=== PATIENT | female | born 1960 | race Caucasian/White ===

== ENCOUNTER 2018-02-25 07:23 | Day surgery (SDC) | payer BC ==
[2018-02-25] MEDS ORDERED: PROPOFOL 10 MG/ML VIAL IV ONE (07:24)
[2018-02-25] MEDS ORDERED: LIDOCAINE 2% MDV (20MG/ML) 20ML VIAL IV ONE (07:24)
--- NOTE | 2018-02-27 09:30 | Operative Note ---
DATE OF SURGERY: 02/25/2018 OPERATION: COLONOSCOPY to the cecum with cold biopsy forceps polypectomy. INDICATION: Prior history of adenomatous polyp removed 5 years ago. The patient returns at this time for surveillance. ANESTHESIA: Intravenous sedation was administered by the department of anesthesiology and included Diprivan titrated to effect. PROCEDURE: Following informed consent from this alert individual including a discussion of the risks and benefits of the procedure and an opportunity for the patient to ask questions, the patient was in the left lateral decubitus position. A digital rectal examination was performed. No abnormalities were noted. Following this, the Olympus [id number] video colonoscope was inserted into the rectum without resistance. The rectal mucosa had a normal appearance with normal folds and distensibility. The colonoscope was advanced up through the colon to the level of the cecum without much difficulty. Throughout the bowel the mucosa appeared normal, the folds were normal, and the bowel was fairly well distensible. The colon preparation was good. The cecum was defined by noting the appendiceal orifice and ileocecal valve. From the base of the cecum, the colonoscope was then slowly withdrawn. There was a diminutive 3 mm polyp noted in the descending colon which was removed with cold biopsy forceps. There were small diverticula noted in the sigmoid colon. The instrument was then withdrawn back into a healthy appearing rectum where retroflexion accomplished following air insufflation failed to demonstrate any abnormalities. The endoscope was straightened and removed. The patient tolerated the procedure well and was returned to the recovery area in stable condition. IMPRESSION: 1. Diminutive 3 mm descending colon polyp removed with biopsy forceps. 2. Mild sigmoid diverticulosis. RECOMMENDATIONS: The patient was advised she should receive a copy of her pathology report at home in the next 2-3 weeks. If not, she was asked to call my office to review the results of testing today. Further recommendations forthcoming pending those results. Followup will be with Dr. Parkinson as well. As always, thank you for allowing me to participate in the care of your patient. CC: NATALI PARKINSON MD, FACP [facility]
== END 2018-02-25 09:10 | disposition home or self-care (01) ==
LOC: HOP 07:23
PROVIDERS: ATTEND Internal Medicine Gastroenterology
DX: Z12.11 Encounter for screening for malignant neoplasm of colon (principal); Z86.010 Personal history of colon polyps; D12.4 Benign neoplasm of descending colon; K57.30 Diverticulosis of large intestine without perforation or abscess without bleeding; R56.9 Unspecified convulsions

== ENCOUNTER 2018-04-26 11:54 | Emergency (ER) | payer BC ==
[2018-04-26] MEDS ORDERED: PROMETHAZINE HCL 12.5 MG in 0.9 % SODIUM CHLORIDE 100ML 100 ML IVPB ONE (12:02)
[2018-04-26] MEDS ORDERED: MECLIZINE 25 MG TABLET PO ONE (12:02)
--- NOTE | 2018-04-26 12:08 | Emergency Department Record ---
History of Present Illness - General Chief Complaint: Nausea, Vomiting, Diarrhea Stated Complaint: DIZZY/N/V Time Seen by Provider: 04/26/18 11:55 Source: Patient, Family, EMS Mode of Arrival: EMS Limitations: No limitations - History of Present Illness Initial Comments: 57 yo female presents with sudden onset of dizziness. The onset was after sex. She states she has had dizziness in the past with turning the head suddenly. She has been having some episodes of mild room spinning dizziness since Sunday. She states she woke up at 7am without symptoms. No headache. She states she turned her head a few times and the dizziness started. She has associated nausea and vomiting. No other pain, weakness or new symptoms. She has a history of seizures but non recently. She is on Keppra. She does note some ear ringing. No headache. She states Dr Parkinson has treated her in the past for similar symptoms. She thinks she was on antivert at that time. MD Complaint: Dizziness -: Hour(s) (1) Timing: Sudden onset Description: "Room spinning" History of Same: Yes History of Trauma: No Severity: Severe Improves With: Other (Keeping her eyes closed) Worsens With: Movement, Position Associated Symptoms: Other (Nausea and vomiting) - Ru Coma Scale Eye Response: (4) Open spontaneously Motor Response: (6) Obeys commands Verbal Response: (5) Oriented Ru Total: 15 - Related Data Previous Rx's Medication Instructions Recorded Meclizine HCl [Antivert] 25 mg PO Q8H #20 tablet 04/26/18 Ondansetron [Zofran Odt] 4 mg PO Q8H #20 tab.rapdis 04/26/18 Allergies Allergy/AdvReac Type Severity Reaction Status Date / Time No Known Drug Allergies Allergy Verified 01/13/15 02:31 Review of Systems Constitutional: Denies: Chills, Fever, Malaise, Weakness Eyes: Denies: Eye discharge, Eye pain, Photophobia, Vision change ENT: Denies: Congestion, Ear pain, Epistaxis, Throat pain Respiratory: Denies: Cough, Dyspnea, Hemoptysis, Wheezes Cardiovascular: Denies: Chest pain, Palpitations, Syncope Endocrine: Denies: Fatigue Gastrointestinal: Reports: Nausea, Vomiting. Denies: Abdominal pain, Diarrhea Genitourinary: Denies: Dysuria Musculoskeletal: Denies: Arthralgia, Back pain, Myalgia Skin: Denies: Bruising, Change in color, Rash Neurological: Reports: Vertigo. Denies: Abnormal gait, Confusion, Headache, Paresthesias, Tingling, Tremors Psychiatric: Denies: Anxiety Hematological/Lymphatic: Denies: Blood Clots, Easy bleeding, Easy bruising Past Medical History - SOCIAL HISTORY Smoking Status: Never smoker - RESPIRATORY Hx Respiratory Disorders: No - CARDIOVASCULAR Hx Cardio Disorders: No - NEURO Hx Neuro Disorders: Yes Hx Seizures: Yes - GI Hx GI Disorders: No - Hx Genitourinary Disorders: No - ENDOCRINE Hx Endocrine Disorders: No - MUSCULOSKELETAL Hx Musculoskeletal Disorders: Yes Comment:: 2008-neck injury - PSYCH Hx Psych Problems: No - HEMATOLOGY/ONCOLOGY Hx Hematology/Oncology Disorders: No Family Medical History Family Hx Comment (NOT TO BE USED IN PLACE OF ITEMS BELOW): sister w/ mental retardation Hx Cancer: Mother, Brother/Sister Hx HTN: Father Hx Seizures: Brother/Sister Physical Exam - General General Appearance: Alert, Oriented x3, Cooperative, No acute distress Limitations: No limitations - Head Head exam: Atraumatic, Normal inspection - Eye Eye exam: Normal appearance, PERRL, EOMI. negative: Conjunctival injection, Nystagmus, Periorbital swelling - ENT ENT exam: Normal exam, Mucous membranes moist Ear exam: Normal external inspection Nasal Exam: Normal inspection Mouth exam: Normal external inspection - Neck Neck exam: Normal inspection. negative: Tenderness - Respiratory Respiratory exam: Normal lung sounds bilaterally. negative: Respiratory distress, Rhonchi, Stridor, Wheezes - Cardiovascular Cardiovascular Exam: Regular rate, Normal rhythm, Normal heart sounds Peripheral Pulses: 2+: Radial (R), Radial (L) - GI/Abdominal GI/Abdominal exam: Soft. negative: Tenderness - Rectal Rectal exam: Deferred - exam: Deferred - Extremities Extremities exam: Normal inspection, Full ROM, Normal capillary refill. negative: Calf tenderness, Joint swelling, Pedal edema, Tenderness - Back Back exam: Denies: CVA tenderness (R), CVA tenderness (L) - Neurological Neurological exam: Alert, CN II-XII intact, Oriented X3, Other (No PND, Normal FTN, No ataxia, clear speech, steady walking without ataxia). negative: Altered , Motor sensory deficit - Psychiatric Psychiatric exam: Anxious - Skin Skin exam: Dry, Intact, Normal color, Warm Course - Reevaluation(s) Reevaluation #1: Bedside report taken from EMS. 04/26/18 12:07 04/26/18 13:15 EKG sinus rate 79, intervals normal, axis normal, ST normal, normal EKG 04/26/18 13:16 HCT is negative The Labs were reviewed. No acute changes. 04/26/18 13:26 The HCT is negative for acute process. The patient's symptoms are much improved at this time. No nausea. 04/26/18 14:43 The patient continues to do very well. The symptoms are nearly resolved. She will be ambulated and reassessed 04/26/18 15:13 The patient is doing well. She has been up to the restroom without difficulty. We discussed home care, reasons to return and close followup Rx for Antivert and Zofran provided Medical Decision Making - Lab Data Result diagrams: 04/26/18 12:00 04/26/18 12:00 Disposition Disposition: Discharge Clinical Impression: Vertigo Disposition: Home, Self-Care Condition: (1) Good Instructions: Vertigo (ED) Additional Instructions: Rest and stay well hydrated Return if the symptoms return or any new concerns or symptoms Take the Antivert every 6 hours You may take Zofran if you have nausea Prescriptions: Meclizine HCl [Antivert] 25 mg PO Q8H #20 tablet Ondansetron [Zofran Odt] 4 mg PO Q8H #20 tab.rapdis Forms: Patient Portal Access Time of Disposition: 14:46 Quality - Quality Measures Quality Measures: N/A - Blood Pressure Screening Does Patient Have Any of the Following: No Blood Pressure Classification: Pre-Hypertensive BP Reading Systolic Measurement: 123 Diastolic Measurement: 77 Screening for High Blood Pressure: < Pre-Hypertensive BP, F/U Documented > [ [id number]] Pre-Hypertensive Follow-up Interventions: Referral to alternative/primary care provider.
[2018-04-26 12:13] LABS: BASO % 0.3 % (0-6); EOS % 0.4 % (0-6); GRAN % 59.6 % (47-80); HEMOGLOBIN 13.8 gm/dl (11.6-16.0); LYMPH % 31.8 % (16-45); MEAN CORPUSCULAR HEMOGLOBIN 32.3 pg (27-33); MEAN CORPUSCULAR HGB CONC 33.7 g/dl (32-36); MEAN PLATELET VOLUME 11.7 fl (7.4-10.4); MONO % 7.9 % (0-9); PLATELET COUNT 228 K/uL (130-400); RED BLOOD COUNT 4.27 M/uL (3.80-5.40); RED CELL DISTRIBUTION WIDTH 12.5 % (11.5-14.5); WHITE BLOOD COUNT W/O DIFF 7.9 K/uL (4.2-12.2)
[2018-04-26 12:25] LABS: BLOOD UREA NITROGEN 18 mg/dL (6-20)
[2018-04-26 12:26] LABS: CREATININE 0.8 mg/dL (0.5-0.9); EST GLOMERULAR FILTRATION RATE > 60 mL/min; TOTAL PROTEIN 7.7 g/dL (6.6-8.7)
[2018-04-26 12:28] LABS: GLUCOSE,RANDOM 116 mg/dL (74-109)
[2018-04-26 12:31] LABS: ALB/GLOB RATIO 1.6 (1.1-1.8); ALBUMIN 4.7 g/dL (4.0-5.0); ALKALINE PHOSPHATASE 68 U/L (35-104); ALT/SGPT 17 U/L (<33); AST/SGOT 23 U/L (10.0-35.0)
[2018-04-26] MEDS ORDERED: ACETAMINOPHEN 500 MG TABLET PO ONE (15:05)
--- NOTE | 2018-04-27 20:34 | CT SCAN REPORT ---
EXAM: CT SCAN HEAD WO CONTRAST HISTORY: SUDDEN ONSET DIZZINESS. TECHNIQUE: Axial CT scan of the head performed without IV contrast. COMPARISON: None. FINDINGS: No definite acute intracranial hemorrhage identified. No focal mass effect or midline shift apparent. No definite acute infarct or intracranial mass lesion seen. No depressed calvarial fracture evident. IMPRESSION: EMERGENCY NONCONTRAST HEAD CT APPEARS ESSENTIALLY NEGATIVE WITH NO DEFINITE ACUTE INTRACRANIAL HEMORRHAGE OR FOCAL MASS EFFECT IDENTIFIED. JOB NUMBER: [id number] MTDD
== END 2018-04-26 15:34 | disposition home or self-care (01) ==
LOC: ER 11:54
DX: R42 Dizziness and giddiness (principal); R11.2 Nausea with vomiting, unspecified; R19.7 Diarrhea, unspecified
CPT/HCPCS: 70450; 80053; 85025; 93005; 93010; 96365; 99284; J2550